=== PATIENT | female | born 1965 | race Hispanic/Latino ===

== ENCOUNTER 2019-06-13 23:20 | Emergency (ER) | payer OTHER ==
[2019-06-14] MEDS ORDERED: ALBUTEROL SULFATE 0.083% 2.5 MG/3 ML INH IH ONE (00:01)
[2019-06-14] MEDS ORDERED: MAG HYDROX/AL HYDROX/SIMETH ES 30 ML SUSP UDCUP ONE (00:05)
[2019-06-14] MEDS ORDERED: PREDNISONE 20 MG TABLET ONE (00:05)
[2019-06-14] MEDS ORDERED: LIDOCAINE HCL 2% VISCOUS 15 ML UDCUP ONE (00:05)
[2019-06-14] MEDS ORDERED: AZITHROMYCIN 250 MG TABLET PO ONE (01:25)
== END 2019-06-14 02:37 | disposition home or self-care (01) ==
LOC: EDH 23:20
DX: J45.21 Mild intermittent asthma with (acute) exacerbation (principal); J20.9 Acute bronchitis, unspecified; Z90.49 Acquired absence of other specified parts of digestive tract; Z90.710 Acquired absence of both cervix and uterus; Z88.1 Allergy status to other antibiotic agents; Z88.8 Allergy status to other drugs, medicaments and biological substances
CPT/HCPCS: 71046; 94640

== ENCOUNTER 2021-06-20 18:11 | Emergency (ER) | payer SELFPAY ==
[~2021-06-20] VITALS: Ht 162.6 cm; Wt 90.7 kg
[2021-06-20 20:25] LABS: BASOPHILS % (AUTO) 0.2 % (0.0-5.0); EOSINOPHILS % (AUTO) 0.6 % (0.0-8.0); HEMATOCRIT 42.2 % (36-48); LYMPHOCYTES % (AUTO) 25.9 % (21.0-51.0); MEAN CORPUSCULAR HEMOGLOBIN 29.7 pg (27.0-33.0); MEAN CORPUSCULAR HGB CONC 34.1 g/dL (32.0-36.0); MONOCYTES % (AUTO) 5.8 % (3.0-13.0); NEUTROPHILS % (AUTO) 67.2 % (40.0-77.0); PLATELET COUNT (AUTO) 199 K/uL (130-400); RED BLOOD CELL COUNT(AUTO) 4.85 MIL/uL (4.00-5.50); WHITE BLOOD COUNT (AUTO) 6.6 K/uL (4.8-10.8)
[2021-06-20 20:29] LABS: APPEARANCE,URINE Clear (CLEAR); BILIRUBIN,URINE Negative (NEGATIVE); COLOR,URINE Yellow (YELLOW); GLUCOSE, URINE (UA) Negative (NEGATIVE); KETONES,URINE >=80 mg/dL (NEGATIVE); LEUKOCYTE ESTERASE ,URINE Trace (NEGATIVE); NITRATE,URINE Negative (NEGATIVE); OCCULT BLOOD,URINE Negative (NEGATIVE); PROTEIN,URINE Negative (NEGATIVE)
[2021-06-20 20:39] LABS: CREATININE 0.7 mg/dL (0.5-1.5)
[2021-06-20 20:44] LABS: ALBUMIN 4.4 g/dL (3.5-5.0); BILIRUBIN,TOTAL 1.4 mg/dL (0.2-1.0); TOTAL PROTEIN, SERUM 8.3 g/dL (6.0-8.3)
[2021-06-20] MEDS ORDERED: ONDANSETRON 4MG INJ IVP ONE (21:00)
[2021-06-20] MEDS ORDERED: FAMOTIDINE 20MG VIAL IV ONE (21:00)
[2021-06-20] MEDS ORDERED: MAG/ALUM/SIMETH 30 ML UDCUP PO ONE (21:00)
[2021-06-20] MEDS ORDERED: 0.9%NACL 1000ML 1,000 ML IV ONE (21:00)
[2021-06-20 21:04] LABS: BACTERIA,URINE None Seen /HPF (None Seen); RBC,URINE None Seen /HPF (0-1); WBC,URINE 0-1 /HPF (0-1)
[2021-06-20 21:05] LABS: MUCUS,URINE Few LPF (None Seen); SQUAMOUS EPITHELIAL CELL,UR None Seen /HPF (0-2)
[2021-06-20] MEDS ORDERED: FAMO20TA8 PO (22:10)
[2021-06-20] MEDS ORDERED: DICY20TA2 PO (22:10)
[2021-06-20] MEDS ORDERED: ONDA4TAB10 PO (22:10)
[2021-06-20 22:24] VITALS: BP 128/84
== END 2021-06-20 22:20 | disposition home or self-care (01) ==
LOC: EDH 18:11
DX: A08.4 Viral intestinal infection, unspecified (principal); J45.909 Unspecified asthma, uncomplicated; I10 Essential (primary) hypertension; Z79.899 Other long term (current) drug therapy; Z91.041 Radiographic dye allergy status; Z88.1 Allergy status to other antibiotic agents
CPT/HCPCS: 36415; 80053; 81001; 83690; 85025; 96361; 96374; 96375; 99284; J2405; J3490; J7030

== ENCOUNTER 2022-05-11 12:06 | Emergency (ER) | payer SELFPAY ==
[~2022-05-11] VITALS: Ht 160 cm; Wt 90.7 kg
[~2022-05-11 12:06] MED LIST: DICY20TA2 PO; FAMO20TA8 PO; ONDA4TAB10 PO
[2022-05-11 12:11] VITALS: BP 117/82
[2022-05-11] MEDS ORDERED: ACETAMINOPHEN 500 MG TABLET PO ONE (12:30)
[2022-05-11] MEDS ORDERED: ACET-66 PO (13:00)
[2022-05-11] MEDS ORDERED: GUAIF10 PO (13:00)
[2022-05-11] MEDS ORDERED: AZIT500T2 PO (13:00)
== END 2022-05-11 13:19 | disposition home or self-care (01) ==
LOC: EDH 12:06
DX: U07.1 COVID-19 (principal)
CPT/HCPCS: 99283; 87635; 87804 ×2; C9803